=== PATIENT | male | born 1990 | race African-American/Black ===

== ENCOUNTER 2018-11-21 23:33 | Emergency (ER) | payer OTHER ==
[~2018-11-21] VITALS: Ht 172.7 cm; Wt 59.0 kg
[2018-11-21 23:44] VITALS: Ht 172.7 cm; Wt 59.0 kg
[2018-11-22 00:35] LABS: BASOPHIL % 0.5 % (0-2); PLATELET COUNT 179 x10^3mcL (130-400); RED CELL DISTRIBUTION WIDTH 12.5 % (11.5-14.5)
[2018-11-22 00:42] LABS: CALCIUM 8.8 mg/dL (8.5-10.1); CARBON DIOXIDE 26.9 mmol/L (21-32); CHLORIDE SERUM 105 mmol/L (98-107); CREATININE SERUM 1.3 mg/dL (0.7-1.3); GFR1 > 60 mL/min; GLUCOSE SERUM 131 mg/dL (74-106); POTASSIUM SERUM 3.8 mmol/L (3.5-5.1); SODIUM SERUM 142 mmol/L (136-145)
[2018-11-22 02:10] VITALS: BP 139/87
== END 2018-11-22 02:05 | disposition home or self-care (01) ==
LOC: ED 23:33
PROVIDERS: Emergency Medicine
DX: R25.2 Cramp and spasm (principal); R53.1 Weakness; R42 Dizziness and giddiness
CPT/HCPCS: 36415; J1885; J7030